=== PATIENT | female | born 1945 | race Caucasian/White ===

== ENCOUNTER 2021-07-17 07:03 | Day surgery (SDC) | payer MEDICARE ==
[2021-07-13 13:18] LABS: BASOPHILS % (AUTO) 0.7 % (0-1); EOSINOPHILS # (AUTO) 0.2 X10'3 (0-0.9); EOSINOPHILS % (AUTO) 3.7 % (0-6); LYMPHOCYTES # (AUTO) 1.5 X10'3 (1.1-4.8); LYMPHOCYTES % (AUTO) 31.3 % (21-51); MEAN CORPUSCULAR HEMOGLOBIN 29.5 PG (27.0-31.0); MEAN CORPUSCULAR HGB CONC 32.4 g/dL (33.0-36.5); MEAN CORPUSCULAR VOLUME 91.2 FL (78-98); MEAN PLATELET VOLUME 9.3 FL (7.4-10.4); MONOCYTES # (AUTO) 0.4 X10'3 (0-0.9); NEUTROPHILS # (AUTO) 2.6 X10'3 (1.8-7.7); NEUTROPHILS % (AUTO) 55.3 % (42-75); PRE OP HEMATOCRIT 41.5 % (35.0-45.0); PRE OP HEMOGLOBIN 13.4 g/dL (12.0-16.0); PRE OP PLATELET COUNT 195 X10'3 (140-440); RED BLOOD COUNT 4.55 X10'6 (4.20-5.60); RED CELL DISTRIBUTION WIDTH 15.3 % (11.5-14.5)
[2021-07-13 13:38] LABS: ALBUMIN/GLOBULIN RATIO 1.7 (1.1-1.5); ALKALINE PHOSPHATASE 105 IU/L (46-116); BLOOD UREA NITROGEN 18 MG/DL (7-18); BUN/CREATININE RATIO 18.9 (6.6-38.0); CALCIUM 8.7 MG/DL (8.5-10.1); CHLORIDE 109 MMOL/L (99-107); CREATININE 0.95 MG/DL (0.40-0.90); PRE OP ALT 23 U/L (30-65); PRE OP ANION GAP 6 (8-16); PRE OP AST 20 U/L (10-37); PRE OP BILIRUB, TOTAL 0.5 MG/DL (0.0-1.0); PRE OP GLUCOSE 85 MG/DL (70-104); PRE OP POTASSIUM 3.9 MMOL/L (3.4-5.1); PRE OP SODIUM 144 MMOL/L (135-145); TOTAL CARBON DIOXIDE 28.8 MMOL/L (24-32); TOTAL PROTEIN 6.4 G/DL (6.4-8.2); eGFR 58 ML/MIN
[~2021-07-17] VITALS: Ht 144.8 cm; Wt 48.0 kg
[~2021-07-17 07:03] MED LIST: ATOR10TA70 PO; BUPIVAcaine/PF 2.5mg/ml (0.25%) 10ml vial ONE; CETI1TAB PO; DOXY-8 PO; GLUC-253 PO; MAGN296S68 PO; MONT10TA21 PO; OLME40TA18 PO; OMEG-79 PO; OSC500T PO; TURM500C4 PO; VIT D-3 PO; [UNRECOGNIZED DRUG - OTHER]; cefazolin/dext.iso 2gm/100ml IV ONE; famotidine 20mg tablet PO ONE; ringers solution, lacted 1,000 ML IV SCH
[2021-07-17] MEDS ORDERED: morphine 4 MG/ML inj SYRINge IV PRN (08:00)
[2021-07-17] MEDS ORDERED: meperidine/PF 25mg/ml syringe IV PRN ×3 (08:00)
[2021-07-17] MEDS ORDERED: acetaminophen 1,000mg/100ml IV 100 ML IV PRN (08:00)
[2021-07-17] MEDS ORDERED: ondansetron/PF 4mg/2ml inj IV PRN (08:00)
[2021-07-17] MEDS ORDERED: morphine 2 MG/ML inj. syringe IV PRN (08:00)
[2021-07-17] MEDS ORDERED: proCHLORperazine 10 MG/2 ml inj IV PRN (08:00)
[2021-07-17] MEDS ORDERED: labetalol 20mg/4ml (5mg/ml) syringe IV PRN (08:00)
[2021-07-17] MEDS ORDERED: hydrALAZINE 20mg/ml inj. IV PRN (08:00)
[2021-07-17] MEDS ORDERED: ringers solution, lacted 1,000 ML IV SCH (08:00)
[2021-07-17] MEDS ORDERED: fentaNYL/PF 50MCG/1 ML 2ML syringe ONE (08:52)
[2021-07-17] MEDS ORDERED: midazolam 1 mg/ML 2ml injection ONE (08:52)
[2021-07-17] MEDS ORDERED: ASPI81TA52 PO (09:29)
[2021-07-17] MEDS ORDERED: propofol inj 20 ML IV ONE (09:30)
--- NOTE | 2021-07-17 09:33 | NUR ---
Received from OR via AR , accompanied by Anesthesiologist ROSITA and report given by Anesthesiolgist. PATIENT WITH 20G PIV IN RIGHT UE RUNNING LR AT `100.. DENIES PAIN ATT HIS TIME. LEFT HAND DRESSING IS CDI WITH + CAP REFILL TO ALL FINGERS. 3L NASAL CANNULA IN PLACE . VSS. Addendum: 07/17/21 at 0945 by Lux Thomas RN, RN Amended: Links added.
[2021-07-17 09:43] VITALS: BP 174/95
[2021-07-17 09:50] VITALS: BP 166/85
[2021-07-17 10:00] VITALS: BP 177/92
[2021-07-17 10:10] VITALS: BP 170/88
--- NOTE | 2021-07-17 10:13 | NUR ---
ALL DC CRITERIA HAS MET- IV OUT WITHOUT COMPLICATIONS. DENIES PAIN. VSS. OUT TO FRIEND FOR RIDE HOME. VSS. DENIES PAIN. ALL DC INSTRCUTIONS COVERED. Addendum: 07/17/21 at 1028 by Lux Thomas RN RN Amended: Links added.
[2021-07-17 10:27] VITALS: BP 172/78
[2021-07-17 10:28] VITALS: BP 172/78
== END 2021-07-17 09:33 | disposition home or self-care (01) ==
LOC: PAS 07:03
PROVIDERS: ATTEND Orthopaedic Surgery Hand Surgery
DX: M72.0 Palmar fascial fibromatosis [Dupuytren] (principal); I10 Essential (primary) hypertension; Z20.822 Contact with and (suspected) exposure to COVID-19; Z79.899 Other long term (current) drug therapy; Z79.82 Long term (current) use of aspirin; Z90.710 Acquired absence of both cervix and uterus; Z90.49 Acquired absence of other specified parts of digestive tract; Z98.890 Other specified postprocedural states; Z86.73 Personal history of transient ischemic attack (TIA), and cerebral infarction without residual deficits; Z86.14 Personal history of Methicillin resistant Staphylococcus aureus infection; Z88.2 Allergy status to sulfonamides; Z88.8 Allergy status to other drugs, medicaments and biological substances; Z91.09 Other allergy status, other than to drugs and biological substances
CPT/HCPCS: 26123; 36415; 80053; 82948; 85025; 93005; A6222; J2250; J2704; J3010; J3490; J7120; U0003; U0005; Z7506; Z7512; A4215; A4618; A6449; A7000